=== PATIENT | female | born 1995 | race Hispanic/Latino ===

== ENCOUNTER 2017-06-24 04:14 | Inpatient (IN) | payer OTHER ==
[2017-06-24 04:44] VITALS: BMI 30.3
[2017-06-24] MEDS ORDERED: Diphenoxylate HCl/Atropine Tablet PO PRN ×2 (04:48)
[2017-06-24] MEDS ORDERED: Promethazine HCl 25 MG/ML VIAL IM PRN ×2 (04:48→06:50)
[2017-06-24] MEDS ORDERED: LR / Pitocin 40 units/1000 ml 1,000 ML IV PRN (04:48)
[2017-06-24] MEDS ORDERED: Acetaminophen 500 MG TAB PO PRN ×2 (04:48→17:35)
[2017-06-24] MEDS ORDERED: HYDROcodone/Acetaminophen 5/325 mg Tablet PO PRN ×2 (04:48)
[2017-06-24] MEDS ORDERED: Ondansetron HCl/PF 4 MG/2 ML Vial IVP PRN ×2 (04:48→06:50)
[2017-06-24] MEDS ORDERED: Lidocaine 1% (PF) 30 ML VIAL SC PRN (04:48)
[2017-06-24] MEDS ORDERED: Zolpidem Tartrate 5 MG TAB PO PRN (04:48)
[2017-06-24] MEDS ORDERED: Ibuprofen 800 MG TAB PO PRN (04:48)
[2017-06-24] MEDS ORDERED: Carboprost 250 MCG/ML AMP IM PRN (04:48)
[2017-06-24] MEDS ORDERED: Misoprostol 200 MCG TAB PR PRN (04:48)
[2017-06-24] MEDS ORDERED: Fentanyl 4 mcg/Marc 0.1% Cadd 100 ML ONE (05:44)
[2017-06-24] MEDS: Lactated Ringer's 1,000 ML IV SCH ×3 (05:55→10:55)
[2017-06-24 06:27] LABS: Hematocrit 32.3 % (36.0-47.0); Mean Platelet Volume 6.4 fL (7.4-10.4); Red Blood Cell (RBC) Count 3.75 mill/uL (4.00-5.20); White Blood Cell (WBC) Count 17.6 thou/uL (4.8-10.8)
[2017-06-24] MEDS ORDERED: ePHEDrine/0.9% NaCl/PF SYRINGE 50 mg/10 ml SLOW IVP PRN (06:50)
[2017-06-24] MEDS ORDERED: Lactated Ringer's 500 ML IV PRN (06:50)
[2017-06-24] MEDS ORDERED: Acetaminophen 325 MG TAB PO PRN (06:50)
[2017-06-24] MEDS ORDERED: diphenhydrAMINE HCl 50 MG/ML 1 ML VIAL IVP PRN (06:50)
[2017-06-24] MEDS ORDERED: Eucerin (Mineral Oil/Petrolatum,White) 30 gm Jar TOP PRN (06:50)
[2017-06-24] MEDS ORDERED: Naloxone HCl 0.4 mg/ml Vial IVP PRN ×2 (06:50)
[2017-06-24] MEDS ORDERED: Communication Order-Pharmacy FS SCH (07:00)
[2017-06-24] MEDS ORDERED: Fentanyl 4mcg/Marcaine 0.1% Cassette 100 ML EPIDURAL SCH (07:00)
[2017-06-24] MEDS ORDERED: LR 500 ML/Oxytocin 10 units 500 ML ONE (08:41)
[2017-06-24] MEDS ORDERED: Lidocaine 2% PF 10 ML AMP (For Epidural Use) ONE (11:11)
[2017-06-24] MEDS ORDERED: diphenhydrAMINE HCl 25 MG CAP PO PRN (17:35)
[2017-06-24] MEDS ORDERED: LR / Pitocin 40 units/1000 ml 1,000 ML IV SCH (17:35)
[2017-06-24] MEDS ORDERED: Bisacodyl 10 MG SUPP PR PRN (17:35)
[2017-06-24] MEDS ORDERED: Milk Of Magnesia 30 ML UDCUP PO PRN (17:35)
[2017-06-24] MEDS ORDERED: Adacel (T-DAP) 0.5 ML VIAL IM ONE (17:35)
[2017-06-24] MEDS: Ferrous Sulfate 325 MG TAB PO SCH (17:53)
[2017-06-24] MEDS: Ibuprofen 800 MG TAB PO SCH (22:23)
[2017-06-24] MEDS: Docusate (Surfak) 240 MG CAP PO SCH (22:24)
[2017-06-25] MEDS ORDERED: Lanolin Ointment 7 GM TUBE TOP PRN (00:43)
[2017-06-25] MEDS: Ibuprofen 800 MG TAB PO SCH ×3 (06:40→22:00)
--- NOTE | 2017-06-25 08:38 | DN ---
DATE OF SERVICE: 06/24/2017 DELIVERY NOTE Stage I: The patient presented in early active labor. She had spontaneous rupture of membranes, re vealing clear fluid and progressed to complete and pushing without difficulty. Stage II: There was controlled delivery of the head over an intact perineum. There was uncomplicat ed delivery of shoulders and torso. Infant had spontaneous cry and was placed on maternal abdomen. Cord was clamped x2 and cut by the father of the baby. Infant was a female weighing 2919 grams, de livered at 1351 on 06/24/2017. Apgars were 9 and 9. Stage III. There was uncomplicated delivery of an intact placenta with a 3-vessel cord. There is r epair of a first degree vaginal laceration with a [id number] suture of 4-0 chromic. A figure-o f-eight suture was also used on the right labia minora. Estimated blood loss from the procedure, 25 0 mL. Both mother and are stable in recovery.
--- NOTE | 2017-06-25 08:45 | PRG ---
DATE OF SERVICE: 06/25/2017 SUBJECTIVE: The patient is doing well, has adequate pain control, has been . She has normal lochia and has voided since delivery. OBJECTIVE: VITAL SIGNS: Temperature 98.5, pulse 79, respiratory rate 17, blood pressure 115/55. GENERAL: Nontoxic appearing female in no acute distress. ABDOMEN: Soft, nontender, nondistended, no rebound, no guarding. GENITOURINARY: Fundus is firm and nontender at the umbilicus. ASSESSMENT AND PLAN: day #1 status post uncomplicated spontaneous vaginal delivery. The patient is doing well. Routine care.
[2017-06-25] MEDS: Ferrous Sulfate 325 MG TAB PO SCH ×2 (08:46→13:26)
[2017-06-25] MEDS: Docusate (Surfak) 240 MG CAP PO SCH ×2 (08:47→22:00)
[2017-06-25] MEDS: Prenatal Vitamin 1 TAB PO SCH (08:47)
[2017-06-25] MEDS ORDERED: Benzocaine/Menthol 20-0.5% 60 ML CAN TOP PRN (17:38)
[2017-06-26] MEDS: Ibuprofen 800 MG TAB PO SCH ×2 (06:23→13:39)
[2017-06-26 07:34] VITALS: BP 110/62; TEMP 98.1
[2017-06-26] MEDS: Docusate (Surfak) 240 MG CAP PO SCH (09:15)
[2017-06-26] MEDS: Ferrous Sulfate 325 MG TAB PO SCH (09:15)
[2017-06-26] MEDS: Prenatal Vitamin 1 TAB PO SCH (09:15)
--- NOTE | 2017-06-26 11:17 | DIS ---
DATE OF ADMISSION: 06/24/2017 DATE OF DISCHARGE: 06/26/2017 ADMITTING DIAGNOSIS: Labor at term. DISCHARGE DIAGNOSIS: Labor at term. PROCEDURE: Normal term spontaneous vaginal delivery. COMPLICATIONS: None. HOSPITAL COURSE: Patient is a 22-year-old G1, P1 female, who presented to labor and delivery in act armando labor and subsequently delivered by uncomplicated term spontaneous vaginal delivery and then sen t to the floor for care. The patient over the last 2 days has been without complications . Today, she reports she is tolerating p.o. well, voiding on her own, having decreased lochia and g ood pain control. PHYSICAL EXAMINATION: VITAL SIGNS: Today, blood pressure is 110/62, temperature 98.1, pulse is 62, respiratory rate of 20 . GENERAL: She appears to be in no acute distress. She is alert and oriented, cooperative and pleasa nt to interact with. HEAD: Normocephalic, atraumatic. ABDOMEN: Soft. Fundus is firm. EXTREMITIES: Nontender with minimal symmetrical edema. The patient will be discharged to home on ibuprofen 800 mg to be taken 3 times a day as needed for p kassyn, #20. She will follow up with Dr. Burton in 6 weeks for routine care. She has been counseled to seek medical attention sooner should she experience fever, increasing pain or bleeding or other concerns.
== END 2017-06-26 16:20 | disposition home or self-care (01) | DRG 775 ==
LOC: L&D/OP 04:14 → L&D 05:00 → 3SW 17:02
PROVIDERS: ADMIT Obstetrics & Gynecology; ATTEND Obstetrics & Gynecology
PROC: 10E0XZZ Delivery of Products of Conception, External Approach (ICD-10-PCS; principal; 2017-06-24)
PROC: 3E033VJ Introduction of Other Hormone into Peripheral Vein, Percutaneous Approach (ICD-10-PCS; 2017-06-24)
PROC: 4A0HXCZ Measurement of Products of Conception, Cardiac Rate, External Approach (ICD-10-PCS; 2017-06-24)
DX: O76 Abnormality in fetal heart rate and rhythm complicating labor and delivery (principal); O71.4 Obstetric high vaginal laceration alone; Z3A.39 39 weeks gestation of pregnancy; Z37.0 Single live birth
CPT/HCPCS: 36415; 85027; 86780; 87340; J2001; J2270; J2550; J7120

== ENCOUNTER 2017-07-13 00:43 | Emergency (ER) | payer OTHER ==
[2017-07-13] MEDS ORDERED: Acetaminophen 500 MG TAB ONE (01:02)
[2017-07-13 01:25] LABS: #Eosinphils 0.2 thou/uL (0.0-0.7); #Lymphocytes 1.2 thou/uL (1.20-3.40); #Monocytes 0.7 thou/uL (0.11-0.59); #Neutrophils 6.4 thou/uL (1.40-6.50); %Basophils 0.1 % (0.0-1.0); %Eosinophils 2.4 % (0.0-10.0); %Lymphocytes 13.7 % (28.0-48.0); %Monocytes 8.6 % (0.0-4.0); Mean Platelet Volume 7.1 fL (7.4-10.4); Red Blood Cell (RBC) Count 4.23 mill/uL (4.00-5.20); White Blood Cell (WBC) Count 8.6 thou/uL (4.8-10.8)
[2017-07-13] MEDS ORDERED: Clindamycin/D5W 900 mg/50 ml Premix Bag ONE (01:30)
[2017-07-13 01:39] LABS: Bilirubin Negative (Negative); Blood, Urine Small (Negative); Glucose, Urine (Dipstick) Negative (Negative); Ketone, Urine Negative (Negative); Nitrite Negative (Negative); Protein, Urine (Dipstick) 30 mg/dL (Neg-Trace)
[2017-07-13 01:42] LABS: Bacteria/HPF 3+ HPF (None Seen); Hyaline Casts/LPF 0-3 HYALINE CAST LPF (0-3 Hyaline)
[2017-07-13 01:47] LABS: ALT (SGPT) 27 U/L (8-55); AST (SGOT) 28 U/L (5-34); Alkaline Phosphatase 128 U/L (40-150); Anion Gap 10 mmol/L (10-20); BUN (Urea Nitrogen) 9 mg/dL (7.0-18.7); Bilirubin, Total 0.4 mg/dL (0.2-1.2); Calc. Creatinine Clearance 0 mL/min (70-130); Calcium 9.5 mg/dL (7.8-10.44); Carbon Dioxide 24 mmol/L (22-29); Chloride 103 mmol/L (98-107); Estimated GFR-MDRD Greater than 90; Lactic Acid - Sepsis 0.8 mmol/L (0.5-2.2)
[2017-07-13] MEDS ORDERED: Nitrofurantoin Monohyd/M-Cryst 100 MG CAP PO SCH (02:15)
== END 2017-07-13 02:37 | disposition home or self-care (01) ==
LOC: ERS 00:43
DX: O86.22 Infection of bladder following delivery (principal); O91.22 Nonpurulent mastitis associated with the puerperium; O99.89 Other specified diseases and conditions complicating pregnancy, childbirth and the puerperium; E86.0 Dehydration
CPT/HCPCS: 36415; 80053; 81003; 81015; 83605; 85025; 87040; 87086; 96365; J3490

== ENCOUNTER 2017-08-31 01:09 | Emergency (ER) | payer BC, OTHER ==
[2017-08-31 01:39] LABS: #Basophils 0.1 thou/uL (0.0-0.2); #Eosinphils 0.3 thou/uL (0.0-0.7); #Lymphocytes 3.7 thou/uL (1.20-3.40); #Monocytes 0.8 thou/uL (0.11-0.59); #Neutrophils 3.5 thou/uL (1.40-6.50); %Basophils 1.3 % (0.0-1.0); %Eosinophils 3.2 % (0.0-10.0); %Lymphocytes 44.6 % (28.0-48.0); %Monocytes 9.2 % (0.0-4.0); Hematocrit 38.5 % (36.0-47.0); Mean Platelet Volume 6.5 fL (7.4-10.4); Red Blood Cell (RBC) Count 4.39 mill/uL (4.00-5.20); White Blood Cell (WBC) Count 8.3 thou/uL (4.8-10.8)
[2017-08-31 01:55] LABS: ALT (SGPT) 37 U/L (8-55); AST (SGOT) 35 U/L (5-34); Alkaline Phosphatase 101 U/L (40-150); Anion Gap 12 mmol/L (10-20); BUN (Urea Nitrogen) 17 mg/dL (7.0-18.7); Bilirubin, Total 0.3 mg/dL (0.2-1.2); Calc. Creatinine Clearance 0 mL/min (70-130); Calcium 9.5 mg/dL (7.8-10.44); Carbon Dioxide 23 mmol/L (22-29); Chloride 108 mmol/L (98-107); Estimated GFR-MDRD Greater than 90; Globulin 3.6 g/dL (2.4-3.5); Lipase 34 U/L (8-78)
[2017-08-31] MEDS ORDERED: Lidocaine Viscous Sol 2% 15 ml UD Cup ONE (02:13)
[2017-08-31] MEDS ORDERED: Mag-Al 1200 mg/1200 mg/30 ML UDCUP ONE (02:13)
[2017-08-31 02:17] LABS: Bilirubin Negative (Negative); Blood, Urine Negative (Negative); Glucose, Urine (Dipstick) Negative (Negative); Ketone, Urine Negative (Negative); Nitrite Negative (Negative); Protein, Urine (Dipstick) Negative (Neg-Trace); Urobilinogen 0.2 mg/dL (0.2-1.0)
== END 2017-08-31 04:39 | disposition home or self-care (01) ==
LOC: ERS 01:09
DX: R10.13 Epigastric pain (principal); J45.909 Unspecified asthma, uncomplicated
CPT/HCPCS: 36415; 80053; 81003; 81025; 83690; 84703; 85025; 99284

== ENCOUNTER 2018-11-23 03:58 | Emergency (ER) | payer BC, OTHER, SELFPAY ==
[2018-11-23] MEDS ORDERED: Dexamethasone 10 MG/ML VIAL ONE (05:08)
== END 2018-11-23 05:14 | disposition home or self-care (01) ==
LOC: ERS 03:58
DX: B34.9 Viral infection, unspecified (principal); J45.909 Unspecified asthma, uncomplicated
CPT/HCPCS: 87081; 87430; 87804; 99283; J1100

== ENCOUNTER 2018-11-25 23:10 | Emergency (ER) | payer SELFPAY ==
[2018-11-26 00:02] LABS: #Basophils 0.1 thou/uL (0.0-0.2); #Eosinphils 0.5 thou/uL (0.0-0.7); #Lymphocytes 2.8 thou/uL (1.20-3.40); #Monocytes 1.3 thou/uL (0.11-0.59); #Neutrophils 9.4 thou/uL (1.40-6.50); %Basophils 0.5 % (0.0-1.0); %Eosinophils 3.5 % (0.0-10.0); %Lymphocytes 19.7 % (21.0-51.0); %Monocytes 9.3 % (0.0-10.0); Hemoglobin 14.2 g/dL (12.0-16.0); Mean Corpuscular HGB CONC 32.5 g/dL (32.0-36.0); Mean Corpuscular Hemoglobin 29.3 pg (27.0-31.0); Mean Corpuscular Volume 90.3 fL (78.0-98.0); Mean Platelet Volume 6.7 fL (7.4-10.4); Platelet Count 467 thou/uL (130-400); RBC Distribution Width 11.7 % (11.5-14.5); Red Blood Cell (RBC) Count 4.84 mill/uL (4.20-5.40); White Blood Cell (WBC) Count 14.1 thou/uL (4.8-10.8)
[2018-11-26 00:30] LABS: ALT (SGPT) 52 U/L (8-55); AST (SGOT) 17 U/L (5-34); Albumin 4.7 g/dL (3.5-5.0); Alkaline Phosphatase 124 U/L (40-150); Anion Gap 13 mmol/L (10-20); BUN (Urea Nitrogen) 11 mg/dL (7.0-18.7); Bilirubin, Total 0.5 mg/dL (0.2-1.2); Calc. Creatinine Clearance 0 mL/min (70-130); Calcium 10.1 mg/dL (7.8-10.44); Carbon Dioxide 28 mmol/L (22-29); Chloride 103 mmol/L (98-107); Estimated GFR-MDRD Greater than 90; Globulin 3.8 g/dL (2.4-3.5); Glucose 101 mg/dL (70-105); Potassium 4.3 mmol/L (3.5-5.1); Protein, Total 8.5 g/dL (6.0-8.3); Sodium 140 mmol/L (136-145)
[2018-11-26 02:10] LABS: Bilirubin Negative (Negative); Blood, Urine Negative (Negative); Clarity CLEAR (Clear); Glucose, Urine (Dipstick) Negative (Negative); Leukocyte Negative (Negative); Nitrite Negative (Negative); Protein, Urine (Dipstick) 30 mg/dL (Neg-Trace); Specific Gravity, Urine 1.033 (1.002-1.036)
[2018-11-26 02:15] LABS: Bacteria/HPF Rare-Few HPF (None Seen); Hyaline Casts/LPF 7-10 HYALINE CAST LPF (0-3 Hyaline); Pathc Cast-AUWi Flag 1.74 (0-2.49); WBC/HPF 0-3 HPF (0-3)
[2018-11-26] MEDS ORDERED: Oxymetazoline HCl 0.05% ( 15 ML ) ONE (03:36)
[2018-11-26] MEDS ORDERED: Ondansetron ODT 4 MG TAB ONE (04:09)
--- NOTE | 2018-11-26 05:56 | RAD ---
CHEST ONE VIEW: INDICATIONS: Cough. COMPARISON: 06/04/2016 FINDINGS: The lungs are clear. Heart size is normal. No acute osseous abnormality is evident. IMPRESSION: No acute cardiopulmonary abnormality. POS: [facility]
== END 2018-11-26 04:32 | disposition home or self-care (01) ==
LOC: ERS 23:10
DX: J06.9 Acute upper respiratory infection, unspecified (principal); R04.0 Epistaxis; J45.909 Unspecified asthma, uncomplicated
CPT/HCPCS: 36415; 71045; 80053; 81003; 81015; 85025; Q0162

== ENCOUNTER 2020-08-15 22:29 | Emergency (ER) | payer SELFPAY ==
[2020-08-15 23:15] LABS: #Basophils 0.1 thou/uL (0.0-0.2); #Eosinphils 0.2 thou/uL (0.0-0.7); #Lymphocytes 3.3 thou/uL (1.20-3.40); #Neutrophils 7.4 thou/uL (1.40-6.50); %Basophils 0.8 % (0.0-1.0); %Eosinophils 1.8 % (0.0-10.0); %Lymphocytes 27.7 % (21.0-51.0); %Monocytes 7.9 % (0.0-10.0); %Neutrophils 61.9 % (42.0-75.0); Hemoglobin 12.5 g/dL (12.0-16.0); Mean Corpuscular HGB CONC 33.5 g/dL (32.0-36.0); Mean Corpuscular Hemoglobin 29.3 pg (27.0-31.0); Mean Corpuscular Volume 87.3 fL (78.0-98.0); Platelet Count 435 thou/uL (130-400); RBC Distribution Width 12.2 % (11.5-14.5); Red Blood Cell (RBC) Count 4.29 mill/uL (4.20-5.40)
[2020-08-15 23:33] LABS: ALT (SGPT) 22 U/L (8-55); AST (SGOT) 20 U/L (5-34); Albumin 4.6 g/dL (3.5-5.0); Alkaline Phosphatase 98 U/L (40-110); Anion Gap 15 mmol/L (10-20); BUN (Urea Nitrogen) 12 mg/dL (7.0-18.7); Bilirubin, Total 0.3 mg/dL (0.2-1.2); Calc. Creatinine Clearance 0 mL/min (70-130); Calcium 9.4 mg/dL (7.8-10.44); Carbon Dioxide 25 mmol/L (22-29); Chloride 104 mmol/L (98-107); Globulin 3.5 g/dL (2.4-3.5); Glucose 94 mg/dL (70-105); Potassium 3.9 mmol/L (3.5-5.1); Protein, Total 8.1 g/dL (6.0-8.3); Sodium 140 mmol/L (136-145)
== END 2020-08-16 00:28 | disposition home or self-care (01) ==
LOC: ERS 22:29
DX: L08.9 Local infection of the skin and subcutaneous tissue, unspecified (principal); J45.909 Unspecified asthma, uncomplicated
CPT/HCPCS: 36415; 80053; 85025; 99283